=== PATIENT | male | born 1970 | race Caucasian/White ===

== ENCOUNTER 2023-02-26 12:37 | Day surgery (SDC) | payer OTHER ==
[~2023-02-26] VITALS: Ht 182.9 cm; Wt 93.0 kg
[2023-02-26] MEDS ORDERED: MEPERIDINE 100 MG INJ. 100 MG/ML VIAL ONE (13:09)
[2023-02-26] MEDS ORDERED: MIDAZOLAM HCL 5 MG/5 ML VIAL ONE (13:09)
[2023-02-26 13:11] VITALS: O2SAT 100
[2023-02-26 18:44] VITALS: BP_SYST 114; PULSE 50; RESP 9
== END 2023-03-02 15:50 | disposition home or self-care (01) ==
LOC: SDS 12:37 → SMU 12:39 → SDS 03-02 15:50
PROVIDERS: ATTEND Internal Medicine Gastroenterology
DX: R19.5 Other fecal abnormalities (principal); K21.9 Gastro-esophageal reflux disease without esophagitis; D12.5 Benign neoplasm of sigmoid colon; K29.70 Gastritis, unspecified, without bleeding; D12.8 Benign neoplasm of rectum; K31.89 Other diseases of stomach and duodenum; K29.80 Duodenitis without bleeding; K64.8 Other hemorrhoids; Z79.899 Other long term (current) drug therapy
CPT/HCPCS: 45385; 45380; 43239; 87081; 36415; 88305; 88312; 88313; 99153; 99152; G0378; J2250; J2175; 45384